=== PATIENT | female | born 1995 | race Caucasian/White ===

== ENCOUNTER 2017-12-26 11:26 | Emergency (ER) | payer MEDICAID ==
[~2017-12-26] VITALS: Ht 152.4 cm; Wt 47.6 kg
[2017-12-26 11:26] VITALS: BP_SYST 121
[2017-12-26] MEDS ORDERED: LORazepam 1 MG TABLET PO ONE (12:00)
[2017-12-26 12:21] VITALS: BP_SYST 124
== END 2017-12-26 12:21 | disposition home or self-care (01) ==
LOC: SED 11:26
DX: F41.9 Anxiety disorder, unspecified (principal); F31.9 Bipolar disorder, unspecified; Z88.8 Allergy status to other drugs, medicaments and biological substances
CPT/HCPCS: 99283